=== PATIENT | male | born 1975 | race Caucasian/White ===

== ENCOUNTER → 2017-12-27 07:34 | Outpatient (CLI) | payer OTHER, SELFPAY ==
[2017-12-27 10:13] LABS: BUN Creatinine Ratio 21.3 (6-22); Blood Urea Nitrogen 17 mg/dL (9-20); Calcium 9.1 mg/dL (8.4-10.2); Carbon Dioxide 29 mmol/L (22-32); Chloride 101 mmol/L (98-107); Cholesterol 203 mg/dL (140-199); Estimated Glomerular Filt Rate > 60.0 mL/min (>60); Glucose 91 mg/dL (70-100); HDL Cholesterol 50 mg/dL (40-60); HEMOLYSIS < 15 (0-50); LDL Cholesterol Calculated 131 mg/dL (<100); Potassium 3.9 mmol/L (3.4-5.1); Sodium 141 mmol/L (137-145); Triglycerides 111 mg/dL (35-150)
[2017-12-27 10:31] LABS: Prostate Specific Antigen 0.831 ng/mL (0.10-4.00)
== END ==
PROVIDERS: PCP Family Medicine; Visit Provider Family Medicine
DX: E78.5 Hyperlipidemia, unspecified (principal); Z12.5 Encounter for screening for malignant neoplasm of prostate
CPT/HCPCS: 36415; 80048; 80061; 84153

== ENCOUNTER → 2023-03-02 10:11 | Outpatient (CLI) | payer OTHER, SELFPAY ==
[2023-03-02 11:19] LABS: Hemoglobin A1C% w Est Avg Glu 5.2 % (4.0-6.0)
[2023-03-02 12:24] LABS: Alanine Aminotransferase 32 IU/L (<50); Albumin 4.7 g/dL (3.5-5.0); Albumin Globulin Ratio 1.3 (1.0-2.8); Alkaline Phosphatase 45 U/L (38-126); Aspartate Aminotransferase 33 IU/L (17-59); BUN Creatinine Ratio 16.2 (6-22); Bilirubin Total 0.9 mg/dL (0.2-1.3); Blood Urea Nitrogen 16 mg/dL (9-20); Calcium 9.4 mg/dL (8.4-10.2); Carbon Dioxide 28 mmol/L (22-32); Chloride 102 mmol/L (98-107); Cholesterol 248 mg/dL (140-199); Estimated Glomerular Filt Rate > 60 mL/min (>60); Globulin 3.5 g/dL (1.7-4.1); Glucose 100 mg/dL (70-100); HDL Cholesterol 42 mg/dL (40-60); HEMOLYSIS < 15 (0-50); LDL Cholesterol Calculated 174 mg/dL (<100); Potassium 4.1 mmol/L (3.4-5.1); Sodium 138 mmol/L (137-145); Total Protein 8.2 g/dL (6.3-8.2); Triglycerides 158 mg/dL (35-150)
[2023-03-02 12:48] LABS: Prostate Specific Antigen Scrn 1.14 ng/mL (0.1-4.0)
== END ==
PROVIDERS: PCP Family Medicine; Referring Provider Family Medicine; Visit Provider Family Medicine
DX: Z00.00 Encounter for general adult medical examination without abnormal findings (principal); E78.5 Hyperlipidemia, unspecified; I77.89 Other specified disorders of arteries and arterioles; R03.0 Elevated blood-pressure reading, without diagnosis of hypertension; Z12.5 Encounter for screening for malignant neoplasm of prostate
CPT/HCPCS: 36415; 80053; 80061; 83036; G0103

== ENCOUNTER 2023-10-28 08:06 | Day surgery (SDC) | payer OTHER, SELFPAY ==
--- NOTE | 2023-10-28 | PATH_ITS ---
[facility] Accession Number: [id number] No. of containers..03 Tissue . 01 Material submitted: . PART A: colon - TRANSVERSE POLYP PART B: colon - DESCENDING POLYP PART C: rectum - RECTAL POLYP . 01 Diagnosis: A. TRANSVERSE COLON POLYP: Tubular adenoma. . B. DESCENDING COLON POLYP: Tubular adenoma. . C. RECTAL POLYP: Tubulovillous adenoma with focal high-grade dysplasia. No evidence of malignancy. [facility] 11/04/2023 1058 Local . 01 Electronically signed: . Mango Szymanski MD, PhD, Pathologist NPI- [id number] . 01 Gross description: . Part A: TRANSVERSE POLYP: Received in formalin is 1 fragment(s) of garcia, soft tissue measuring 0.3 x 0.2 x 0.2 cm submitted entirely in 1 cassette(s) Part B: DESCENDING POLYP: Received in formalin are 3 fragment(s) of garcia, soft tissue measuring 0.3 x 0.2 x 0.2 cm to 0.6 x 0.5 x 0.4 cm submitted entirely in 1 cassette(s) Part C: RECTAL POLYP: Received in formalin is 1 fragment of garcia soft tissue measuring 1.5 x 1.1 x 1.1 cm. Specimen is sectioned and submitted in its entirety in 2 cassettes. /DINESH 11/01/2023 2325 Local . 01 Pathologist provided ICD-10: D12.6, D12.8 . 01 CPT . 295711, [id number], [id number] Specimen Comment: A courtesy copy of this report has been sent to [phone] Performed at: 01 [facility] [address] [place] [address] Suite [facility][note 3], [place], [place] [id number] MD Christos Buckley MD Phone: [phone]
[2023-10-28] MEDS: LACTATED RINGERS 1,000 ML 100 ML IV (08:54)
[2023-10-28 09:06] VITALS: BP 129/89; PULSE 88; RESP 16; TEMP 36.2; O2SAT 97
--- NOTE | 2023-10-28 09:34 | PM.HP.1 ---
History of Present Illness History of Present Illness Date Patient Seen: 10/28/23 Time Patient Seen: 09:35 Chief complaint: Colonoscopy Narrative: Lynne is a 48-year-old man who is here for a screening colonoscopy. He has never had 1 before. No family history of colon cancer. [facility] Medical History (Updated 10/28/23 @ 09:35 by Lamont Pelaez MD) Chronic back pain (~2000) Aortic root enlargement History of pericarditis Chronic throat clearing Hyperlipidemia Pilonidal cyst (Unknown) Inguinal hernia (Unknown) Surgical History (Updated 03/10/23 @ 20:48 by Alicia Lynch) Anesthesia S/P surgical removal of pilonidal cyst (10/2017) S/P hernia surgery (07/2017) Family History (Updated 03/10/23 @ 20:48 by Alicia Lynch) Father Prostate cancer Bladder carcinoma Cancer Mother No problems noted. Social History marital status: household members: spouse lives independently: Yes education level: master's degree occupational status: employed Previous occupational history: server software engineer Smoking Status: Never smoker alcohol intake: current Meds Home Medications and Allergies Home Medications Medication Instructions Recorded Confirmed Type multivitamin (Multiple Vitamins 1 tab PO QDAY ##0 07/19/17 10/28/23 History tablet) Allergies Allergy/AdvReac Type Severity Reaction Status Date / Time No Known Allergies Allergy Uncoded 10/04/23 10:16 Exam Vital Signs (past 8 hours): - 10/28/23 09:06 Temperature 97.2 F L Pulse Rate 88 Respiratory Rate 16 Blood Pressure 129/89 Pulse Oximetry 97 Oxygen Delivery Method Room Air Oxygen Delivery Method Room Air Const General: healthy appearing Resp Effort & Inspection: normal respiratory effort Assessment & Plan Assessment and plan (1) Colon cancer screening: Status: Acute Plan We reviewed the risks and benefits of colonoscopy for colon cancer screening and he would like to proceed.
--- NOTE | 2023-10-28 11:45 | PM.OP.COLON ---
Operative Date/Time/Diagnoses Date of procedure: 10/28/23 Time of procedure: 11:45 Pre-op diagnosis: Colon cancer screening Post-op diagnosis: same Procedure & Clinicians Study performed: Colonoscopy Same procedure as scheduled: Yes Surgeon: Lamont Pelaez Procedure Notes Procedure in detail: Surgeon: Lamont Pelaez MD Anesthesia: Samantha Manjarrez CRNA Procedure: The patient was brought to the endoscopy suite, placed in left lateral decubitus position. The patient was connected to monitoring devices. A time-out was performed. Sedation was administered. Once the patient was adequately sedated, a digital rectal exam was performed and was normal. The scope was then inserted and advanced to the cecum where the appendiceal orifice was identified and photographed. The scope was then slowly withdrawn over greater than 6 minutes. The mucosa was thoroughly inspected. There was a 5 mm polyp in the transverse colon removed with a cold snare. There was a 1 cm polyp in the descending colon removed with cold snare. A single sure clip was applied with good effect. There was a 2 cm polyp in the mid rectum at approximately 10 cm removed with a hot snare. The scope was retroflexed in the rectum. No other abnormalities were seen. The scope was straightened and removed. The patient was awakened and brought to recovery. Scope withdrawal time: 26 minutes Sedation time: 32 minutes EBL: 5 mL Findings: 5 mm polyp in the transverse colon, 1 cm polyp in the descending colon and 2 cm polyp in the mid rectum Post-procedure Disposition: PACU
[2023-10-28 11:49] VITALS: BP 109/71; PULSE 65; RESP 12; TEMP 36.1; O2SAT 94
[2023-10-28 11:54] VITALS: BP 107/73; PULSE 66; RESP 10; O2SAT 92
[2023-10-28 11:59] VITALS: BP 114/70; PULSE 74; RESP 14; O2SAT 96
[2023-10-28 12:05] VITALS: BP 105/68; PULSE 69; RESP 23; O2SAT 96
[2023-10-28 12:09] VITALS: BP 111/68; PULSE 58; RESP 12; O2SAT 98
== END 2023-10-28 12:20 | disposition home or self-care (01) ==
PROVIDERS: PCP Family Medicine; Referring Provider Surgery; Visit Provider Surgery
PROC: 0DJD8ZZ Inspection of Lower Intestinal Tract, Via Natural or Artificial Opening Endoscopic (ICD-10-PCS; CPT 45378; principal; 2023-10-28 09:15)
DX: Z12.11 Encounter for screening for malignant neoplasm of colon (principal); D12.3 Benign neoplasm of transverse colon; D12.4 Benign neoplasm of descending colon; D12.8 Benign neoplasm of rectum
CPT/HCPCS: 45385; J2704

== ENCOUNTER → 2023-11-26 07:55 | Outpatient (CLI) | payer OTHER, SELFPAY ==
--- NOTE | 2023-11-26 07:55 | DI.ECHO.S_ITS ---
[facility] : : [address] : : [place] : : [id number] : : Phone: [phone] Echocardiogram Report + + :Name: RICK DAVIS Study Date: 11/26/2023 Height: 73 in : :Hospital ReadingLocation: Weight: 230 lb : : Gender: Male BSA: 2.3 m2 : :: 1975 Age: 48 yrs BP: 143/97 mmHg: :Reason For Study: AORTIC ROOT ENLARGEMENT : :Ordering Physician: RIC, : :PETER Performed By: Sergio Coffman : :Referring: PETER LARIOS : + + Interpretation Summary 1. The left ventricular contractility is normal. Estimated ejection fraction is greater than 60% with no segmental wall motion abnormalities. No left ventricular hypertrophy is identified. Normal diastolic function noted. 2. The right ventricular contractility is normal. 3. There is mild biatrial enlargement as well as mild right ventricular enlargement. The left ventricular cavity is of normal size. 4. No significant valvular abnormalities are appreciated. 5. No obvious intracardiac shunts present. 6. No obvious intracardiac masses nor thrombi appreciated. 7. No hemodynamically significant pericardial effusion present. 8. Mildly dilated aortic root of 4.2 cm with no obvious dissection. Conclusion: Normal biventricular function with mild cardiomegaly but no significant valvular abnormalities nor intracardiac shunts. The aortic root is also mildly dilated. Procedure: A two-dimensional transthoracic echocardiogram with color flow and Doppler was performed. The study quality was technically adequate. There is no prior echocardiogram noted for this patient. The patient was in normal sinus rhythm during the exam. The heart rate ranged between 65-78 bpm during the study. Left Ventricle: The left ventricle is normal in size and wall thickness. The ejection fraction is estimated to be 65-70%. Right Ventricle: The right ventricle is mildly dilated. The right ventricular systolic function is normal. Atria: The left atrium is mildly dilated. The right atrium is mildly dilated. The interatrial septum grossly appears intact with no obvious evidence for an atrial septal defect. Mitral Valve: The mitral valve is normal in structure and function. There is no mitral valve stenosis. There is trace mitral regurgitation. Aortic Valve: The aortic valve is trileaflet. There is no aortic valve stenosis. No aortic regurgitation is present. Tricuspid Valve: The tricuspid valve is normal in structure and function. There is no tricuspid stenosis. No tricuspid regurgitation. Pulmonic Valve: The pulmonic valve is not well visualized. There is no pulmonic valvular stenosis. There is no pulmonic valvular regurgitation. Great Vessels: The aortic root is mildly dilated. The dimensions of the ascending aorta are normal. The IVC is dilated (diameter is greater than 2.1 cm) yet it collapses greater than 50% with a sniff. This suggests a right atrial pressure of 8 mm Hg. Pericardium/ Pleura There is no pericardial effusion. There is no pleural effusion. MMode/2D Measurements & Calculations LVIDd: 5.6 cm LVOT diam: 2.5 cm LVIDs: 3.6 cm Ao root diam: 4.2 cm FS: 36.0 % asc Aorta Diam: 3.7 cm IVSd: 1.0 cm Ao Arch Diam (Prox Trans): 3.0 cm LVPWd: 0.88 cm LV martinez. diameter/BSA (cm/m^2): 2.4 LV sys. diameter/BSA (cm/m^2): 1.6 LA A2 area: 25.6 cm2 RA long axis: 5.7 cm LA A4 area: 20.2 cm2 RA area: 20.9 cm2 LA length (vol): 5.6 cm RA vol: 65.2 ml LA vol: 78.6 ml RA : 28.5 ml/m2 LA vol index: 34.4 ml/m2 IVC diam: 2.3 cm RVD1 (basal): 4.2 cm RVD2 (mid): 4.0 cm TAPSE: 3.2 cm Doppler Measurements & Calculations Ao V2 max: 131.4 cm/sec LVOT Max Melvin: 115.3 cm/sec Ao V2 mean: 95.7 cm/sec LV V1 max P.3 mmHg Ao max P.9 mmHg LV V1 VTI: 26.3 cm Ao mean P.1 mmHg WENDY(I,D): 4.4 cm2 Ao V2 VTI: 28.8 cm WENDY(V,D): 4.2 cm2 sev ratio: 0.91 WENDY indexed to BSA (cm^2/m^2): 1.9 MV E max melvin: 85.6 cm/sec PA V2 max: 138.7 cm/sec MV A max melvin: 71.6 cm/sec PA V2 mean: 90.9 cm/sec MV E/A: 1.2 PA mean P.8 mmHg Med Peak E' Melvin: 7.6 cm/sec PA pr(Accel): 31.0 mmHg E/E' med: 11.2 Lat Peak E' Melvin: 12.0 cm/sec E/E' lat: 7.1 E/e' average: 9.1 MV dec time: 0.20 sec SV(LVOT): 125.2 ml Reading Physician:
== END ==
PROVIDERS: PCP Family Medicine; Referring Provider Family Medicine; Visit Provider Family Medicine
DX: I77.810 Thoracic aortic ectasia (principal); E78.5 Hyperlipidemia, unspecified; R03.0 Elevated blood-pressure reading, without diagnosis of hypertension
CPT/HCPCS: 93306

== ENCOUNTER → 2024-04-08 08:34 | Outpatient (CLI) | payer OTHER, SELFPAY ==
[2024-04-08 10:06] LABS: Hemoglobin A1C% w Est Avg Glu 5.3 % (4.0-6.0)
[2024-04-08 10:15] LABS: Alanine Aminotransferase 26 IU/L (<50); Albumin 4.4 g/dL (3.5-5.0); Albumin Globulin Ratio 1.4 (1.0-2.8); Alkaline Phosphatase 40 U/L (38-126); Aspartate Aminotransferase 30 IU/L (17-59); BUN Creatinine Ratio 18.8 (6-22); Bilirubin Total 0.8 mg/dL (0.2-1.3); Blood Urea Nitrogen 16 mg/dL (9-20); Calcium 9.5 mg/dL (8.4-10.2); Carbon Dioxide 29 mmol/L (22-32); Chloride 100 mmol/L (98-107); Cholesterol 214 mg/dL (140-199); Estimated Glomerular Filt Rate > 60 mL/min (>60); Globulin 3.2 g/dL (1.7-4.1); Glucose 90 mg/dL (70-100); HDL Cholesterol 45 mg/dL (40-60); HEMOLYSIS 18 (0-50); LDL Cholesterol Calculated 141 mg/dL (<100); Potassium 4.4 mmol/L (3.4-5.1); Sodium 136 mmol/L (137-145); Total Protein 7.6 g/dL (6.3-8.2); Triglycerides 139 mg/dL (35-150)
== END ==
PROVIDERS: PCP Family Medicine; Referring Provider Family Medicine; Visit Provider Family Medicine
DX: Z00.00 Encounter for general adult medical examination without abnormal findings (principal); E78.5 Hyperlipidemia, unspecified; I77.89 Other specified disorders of arteries and arterioles
CPT/HCPCS: 36415; 80053; 80061; 83036

== ENCOUNTER 2024-04-13 07:28 | Day surgery (SDC) | payer OTHER, SELFPAY ==
[2024-04-13] MEDS: LACTATED RINGERS 1,000 ML 42 ML IV (08:00)
[2024-04-13 08:17] VITALS: BP 138/88; PULSE 77; RESP 16; TEMP 36.3; O2SAT 98
--- NOTE | 2024-04-13 08:39 | P.HP_ITS ---
History of Present Illness History of Present Illness Date Patient Seen: 04/13/24 Time Patient Seen: 08:39 Chief complaint: Colonoscopy Narrative: Jd is a 48-year-old man who had a colonoscopy earlier this year with findings of tubulovillous adenoma with high-grade dysplasia in his rectum. He returns for his six-month repeat colonoscopy. [facility] Medical History (Updated 04/13/24 @ 08:40 by Lamont Pelaez MD) Chronic back pain (~1999) Aortic root enlargement History of pericarditis Chronic throat clearing Hyperlipidemia Pilonidal cyst (Unknown) Inguinal hernia (Unknown) Surgical History (Updated 03/10/23 @ 20:48 by Alicia Lynch) Anesthesia S/P surgical removal of pilonidal cyst (10/2017) S/P hernia surgery (07/2017) Family History (Updated 03/10/23 @ 20:48 by Alicia Lynch) Father Prostate cancer Bladder carcinoma Cancer Mother No problems noted. Social History marital status: household members: spouse lives independently: Yes education level: master's degree occupational status: employed Previous occupational history: junior manufacturing engineer Smoking Status: Never smoker alcohol intake: current Meds Home Medications and Allergies Home Medications Medication Instructions Recorded Confirmed Type multivitamin (Multiple Vitamins 1 tab PO QDAY ##0 07/19/17 03/07/24 History tablet) sodium,potassium,mag sulfates 17.5 See Rx Instructions PO .COMPLEX 04/12/24 Rx gram-3.13 gram-1.6 gram oral soln #354 mL (Suprep Bowel Prep Kit) Allergies Allergy/AdvReac Type Severity Reaction Status Date / Time No Known Allergies Allergy Uncoded 03/07/24 10:57 Exam Vital Signs (past 8 hours): - 04/13/24 08:17 Temperature 97.4 F L Pulse Rate 77 Respiratory Rate 16 Blood Pressure 138/88 Pulse Oximetry 98 Oxygen Delivery Method Room Air Oxygen Delivery Method Room Air Const General: healthy appearing Resp Effort & Inspection: normal respiratory effort Assessment & Plan Assessment and plan (1) Tubulovillous adenoma of rectum: Status: Acute Plan We reviewed the risks and benefits of colonoscopy and he would like to proceed. Time-Based Coding :: [TOTAL MINUTES] spent with patient and on the chart (including review of chart, obtaining history, exam, reviewing outside data, placing orders, documenting exam and treatment plan, and counseling patient) on [DATE].
--- NOTE | 2024-04-13 09:17 | PM.OP.COLON ---
Operative Date/Time/Diagnoses Date of procedure: 04/13/24 Time of procedure: 09:18 Pre-op diagnosis: History of tubulovillous adenoma with high-grade dysplasia Post-op diagnosis: same Procedure & Clinicians Study performed: Colonoscopy Same procedure as scheduled: Yes Surgeon: Lamont Pelaez Procedure Notes Procedure in detail: Surgeon: Lamont Pelaez MD Anesthesia: Amrita Young DO Procedure: The patient was brought to the endoscopy suite, placed in left lateral decubitus position. The patient was connected to monitoring devices. A time-out was performed. Sedation was administered. Once the patient was adequately sedated, a digital rectal exam was performed and was normal. The scope was then inserted and advanced to the cecum where the appendiceal orifice was identified and photographed. The scope was then slowly withdrawn over greater than 6 minutes. The mucosa was thoroughly inspected. No abnormalities were found. The scope was retroflexed in the rectum. No abnormalities were seen. The scope was straightened and removed. The patient was awakened and brought to recovery. Scope withdrawal time: 12 minutes Sedation time: 21 minutes EBL: 0 Findings: Normal colon Post-procedure Recommendations: Colonoscopy in 5 years Disposition: PACU
[2024-04-13 09:18] VITALS: BP 106/72; PULSE 67; RESP 15; TEMP 36.3; O2SAT 95
[2024-04-13 09:26] VITALS: BP 103/69; PULSE 78; RESP 15; O2SAT 95
[2024-04-13 09:32] VITALS: BP 115/73; PULSE 74; RESP 18; O2SAT 96
== END 2024-04-13 09:51 | disposition home or self-care (01) ==
PROVIDERS: PCP Family Medicine; Referring Provider Surgery; Visit Provider Surgery
PROC: 0DJD8ZZ Inspection of Lower Intestinal Tract, Via Natural or Artificial Opening Endoscopic (ICD-10-PCS; CPT 45378; principal; 2024-04-13 08:45)
DX: Z12.11 Encounter for screening for malignant neoplasm of colon (principal); Z86.0101 Personal history of adenomatous and serrated colon polyps
CPT/HCPCS: 45378; J2704